=== PATIENT | male | born 1990 ===

== ENCOUNTER 2018-12-28 21:30 | Emergency (ER) | payer SELFPAY ==
[~2018-12-28] VITALS: Ht 180.3 cm; Wt 117.9 kg
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
--- NOTE | 2018-12-28 21:40 | NUR ---
RADIOLOGY AT BEDSIDE FOR XRAY
[2018-12-28 21:42] VITALS: BP 157/111
--- NOTE | 2018-12-28 21:45 | NUR ---
CALLED [facility] TO GIVE REPORT FOR PT BEING TRANSPORTED TO [facility] ER, DUNG MCNAMARA SPEAKING WITH DR ALLEN.
--- NOTE | 2018-12-28 21:48 | NUR ---
PT NECKLACES PLACED IN BAG AND GIVEN TO PT. CLOTHING GIVEN TO PT.
--- NOTE | 2018-12-28 21:52 | NUR ---
REPORT GIVEN TO [facility] FOR CONTINUATION OF CARE.
[2018-12-28] MEDS ORDERED: IV NS 0.9% 1,000 ML BAG IV ONE (22:00)
== END 2018-12-28 21:50 | disposition short-term general hospital (02) ==
LOC: ER 21:32
DX: S82.251B Displaced comminuted fracture of shaft of right tibia, initial encounter for open fracture type I or II (principal); S82.451B Displaced comminuted fracture of shaft of right fibula, initial encounter for open fracture type I or II; S40.012A Contusion of left shoulder, initial encounter; S20.221A Contusion of right back wall of thorax, initial encounter; Z60.2 Problems related to living alone; W34.09XA Accidental discharge from other specified firearms, initial encounter; Y93.89 Activity, other specified; Y92.89 Other specified places as the place of occurrence of the external cause; Y99.8 Other external cause status
CPT/HCPCS: 71045; 73590; 99291; J7030